=== PATIENT | male | born 1980 ===

== ENCOUNTER 2022-09-07 06:01 | Inpatient (IN) ==
[~2022-09-07 06:01] MED LIST: ALVIMOPAN 12 MG CAPSULE ONE; ERTAPENEM 1,000 MG in SODIUM CHLORIDE 0.9% 100 ML IV ONE
[2022-09-07] MEDS ORDERED: ALVIMOPAN 12 MG CAPSULE PO STA (06:30)
[2022-09-07] MEDS: LACTATED RINGERS 1,000 ML IV SCH ×4 (06:45→23:18)
[2022-09-07 07:10] LABS: Basophils % 0.2 % (0.0-0.8); Eosinophils # 0.1 10*3/uL (0.0-0.87); Hematocrit 42.8 VOL% (42.0-52.0); Hemoglobin 14.2 GM/DL (14.0-18.0); Immature Granulocytes % 0.2 %; Immature Granulocytes Absolute 0.01 #; Lymphocytes % 22.4 % (21.2-54.2); Mean Corpuscular HGB Conc 33.2 GM/DL (32-36); Mean Corpuscular Volume 82.8 FL (87-102); Monocytes # 0.5 10*3/uL (0.11-0.8); Monocytes % 11.3 % (1.7-12.7); Neutrophils % 63.9 % (38.7-73.9); Platelet Count 176 T/CUMM (130-400); Red Blood Count 5.17 MC/CUMM (3.8-5.5); White Blood Count 4.6 T/CUMM (4-12)
[2022-09-07] MEDS ORDERED: DIAZEPAM 5 MG TABLET PO ONE (07:22)
[2022-09-07] MEDS ORDERED: ACETAMINOPHEN 500 MG TABLET PO ONE (07:22)
[2022-09-07] MEDS ORDERED: FAMOTIDINE 20 MG TABLET PO ONE (07:22)
[2022-09-07] MEDS ORDERED: GABAPENTIN 400 MG CAPSULE PO ONE (07:22)
[2022-09-07 07:32] LABS: Calcium 8.6 MG/DL (8.5-10.1); Osmolality,Calculated 272.7 MOS/KG (273-304); Potassium 4.1 MMOL/L (3.5-5.1)
[2022-09-07] MEDS ORDERED: MIDAZOLAM 2 MG/2 ML VIAL ONE (09:32)
[2022-09-07] MEDS ORDERED: ROCURONIUM 50 MG/5 ML VIAL IV ONE (09:32)
[2022-09-07] MEDS ORDERED: LIDOCAINE 2% 5 ML VIAL ONE (09:32)
[2022-09-07] MEDS ORDERED: ONDANSETRON 4 MG/2 ML VIAL ONE (09:32)
[2022-09-07] MEDS ORDERED: propofoL 200 MG/20 ML VIAL IV ONE (09:32)
[2022-09-07] MEDS ORDERED: fentaNYL 250 MCG/5 ML VIAL ONE (09:33)
[2022-09-07] MEDS ORDERED: DEXAMETHASONE 4 MG/1 ML VIAL ONE (10:16)
[2022-09-07] MEDS ORDERED: PHENYLEPHRINE 1 MG/10 ML SYRINGE IV ONE (10:19)
[2022-09-07] MEDS ORDERED: SEVOFLURANE 1 UNIT/15 MINUTE INH ONE ×8 (10:20→11:48)
[2022-09-07] MEDS ORDERED: LACTATED RINGERS 1,000 ML IV ONE (10:31)
[2022-09-07] MEDS ORDERED: ePHEDrine 50 MG/ML VIAL ONE (10:54)
[2022-09-07] MEDS ORDERED: MEPERIDINE 25 MG/1 ML VIAL ONE (12:02)
[2022-09-07] MEDS ORDERED: PROMETHAZINE 25 MG/1 ML VIAL ONE (12:02)
[2022-09-07] MEDS: MEPERIDINE 25 MG/1 ML VIAL IV PRN ×2 (12:05→12:25)
[2022-09-07] MEDS ORDERED: PROMETHAZINE INJ 12.5 MG in SODIUM CHLORIDE 0.9% 50 ML IV PRN (12:13)
[2022-09-07] MEDS ORDERED: HYDROmorphone 1 MG/1 ML SYRINGE IV PRN (12:51)
[2022-09-07] MEDS ORDERED: ALBUTEROL/IPRATROPIUM 3 ML NEB RESP TX PRN (12:51)
[2022-09-07] MEDS ORDERED: ACETAMINOPHEN 325 MG TABLET PO PRN (12:51)
[2022-09-07] MEDS: ALVIMOPAN 12 MG CAPSULE PO SCH (21:32)
[2022-09-08] MEDS: HYDROmorphone 1 MG/1 ML SYRINGE IV PRN ×3 (01:19→19:13)
[2022-09-08 05:58] LABS: Basophils % 0.3 % (0.0-0.8); Hematocrit 40.1 VOL% (42.0-52.0); Hemoglobin 13.4 GM/DL (14.0-18.0); Immature Granulocytes % 0.3 %; Immature Granulocytes Absolute 0.02 #; Lymphocytes % 12.4 % (21.2-54.2); Mean Corpuscular HGB Conc 33.4 GM/DL (32-36); Mean Corpuscular Volume 82.5 FL (87-102); Mean Platelet Volume 12.5 FL (9.6-12.0); Monocytes # 0.7 10*3/uL (0.11-0.8); Monocytes % 9.7 % (1.7-12.7); Neutrophils % 77.3 % (38.7-73.9); Platelet Count 154 T/CUMM (130-400); Red Blood Count 4.86 MC/CUMM (3.8-5.5); Red Cell Distribution Width 13.8 % (9.3-17.3); White Blood Count 7.7 T/CUMM (4-12)
[2022-09-08 06:18] LABS: Calcium 8.2 MG/DL (8.5-10.1); Osmolality,Calculated 277.4 MOS/KG (273-304); Potassium 4.4 MMOL/L (3.5-5.1)
[2022-09-08] MEDS: ENOXAPARIN 40 MG/0.4 ML SYRINGE SUBCUT SCH (07:01)
[2022-09-08] MEDS: amLODIPine 2.5 MG TABLET PO SCH (08:35)
[2022-09-08] MEDS: ALVIMOPAN 12 MG CAPSULE PO SCH ×2 (08:36→19:13)
[2022-09-08] MEDS: METOCLOPRAMIDE 10 MG/2 ML VIAL IV SCH ×2 (11:10→17:09)
[2022-09-08] MEDS: LACTATED RINGERS 1,000 ML IV SCH ×3 (11:23→20:21)
[2022-09-09] MEDS: METOCLOPRAMIDE 10 MG/2 ML VIAL IV SCH ×5 (00:57→23:03)
[2022-09-09] MEDS: LACTATED RINGERS 1,000 ML IV SCH ×3 (06:18→23:09)
[2022-09-09] MEDS: HYDROmorphone 1 MG/1 ML SYRINGE IV PRN ×4 (06:28→23:02)
[2022-09-09] MEDS: ENOXAPARIN 40 MG/0.4 ML SYRINGE SUBCUT SCH (07:11)
[2022-09-09] MEDS: ALVIMOPAN 12 MG CAPSULE PO SCH ×2 (09:18→20:02)
[2022-09-09] MEDS: amLODIPine 2.5 MG TABLET PO SCH (09:18)
[2022-09-09] MEDS: ONDANSETRON 4 MG/2 ML VIAL IV PRN (23:09)
[2022-09-10] MEDS: HYDROmorphone 1 MG/1 ML SYRINGE IV PRN ×5 (04:10→21:17)
[2022-09-10] MEDS: ONDANSETRON 4 MG/2 ML VIAL IV PRN (04:18)
[2022-09-10] MEDS: METOCLOPRAMIDE 10 MG/2 ML VIAL IV SCH ×3 (05:23→17:28)
[2022-09-10 06:43] LABS: Basophils % 0.2 % (0.0-0.8); Eosinophils % 0.2 % (0.00-10.9); Hematocrit 31.4 VOL% (42.0-52.0); Hemoglobin 10.5 GM/DL (14.0-18.0); Immature Granulocytes % 0.3 %; Immature Granulocytes Absolute 0.02 #; Lymphocytes # 0.8 10*3/uL (1.4-4.0); Lymphocytes % 11.8 % (21.2-54.2); Mean Corpuscular HGB Conc 33.4 GM/DL (32-36); Mean Platelet Volume 11.1 FL (9.6-12.0); Monocytes # 0.8 10*3/uL (0.11-0.8); Monocytes % 12.8 % (1.7-12.7); Neutrophils % 74.7 % (38.7-73.9); Platelet Count 126 T/CUMM (130-400); Red Blood Count 3.83 MC/CUMM (3.8-5.5); Red Cell Distribution Width 13.5 % (9.3-17.3); White Blood Count 6.5 T/CUMM (4-12)
[2022-09-10 07:03] LABS: Calcium 8.5 MG/DL (8.5-10.1); Osmolality,Calculated 279.4 MOS/KG (273-304); Potassium 4.1 MMOL/L (3.5-5.1)
[2022-09-10 07:15] LABS: Platelet Estimate Decreased
[2022-09-10] MEDS: LACTATED RINGERS 1,000 ML IV SCH ×2 (07:39→17:29)
[2022-09-10] MEDS: ENOXAPARIN 40 MG/0.4 ML SYRINGE SUBCUT SCH (07:42)
[2022-09-10] MEDS: amLODIPine 2.5 MG TABLET PO SCH (10:27)
[2022-09-10] MEDS: ALVIMOPAN 12 MG CAPSULE PO SCH ×2 (10:27→21:18)
[2022-09-11] MEDS: HYDROmorphone 1 MG/1 ML SYRINGE IV PRN ×3 (00:01→20:19)
[2022-09-11] MEDS: LACTATED RINGERS 1,000 ML IV SCH ×3 (01:07→18:05)
[2022-09-11 05:33] LABS: Basophils % 0.2 % (0.0-0.8); Eosinophils # 0.1 10*3/uL (0.0-0.87); Eosinophils % 2.7 % (0.00-10.9); Hematocrit 30.2 VOL% (42.0-52.0); Hemoglobin 9.6 GM/DL (14.0-18.0); Immature Granulocytes % 0.4 %; Immature Granulocytes Absolute 0.02 #; Lymphocytes # 0.7 10*3/uL (1.4-4.0); Lymphocytes % 13.5 % (21.2-54.2); Mean Corpuscular HGB Conc 31.8 GM/DL (32-36); Mean Corpuscular Volume 83.2 FL (87-102); Mean Platelet Volume 11.4 FL (9.6-12.0); Monocytes # 0.6 10*3/uL (0.11-0.8); Monocytes % 11.2 % (1.7-12.7); Platelet Count 144 T/CUMM (130-400); Red Blood Count 3.63 MC/CUMM (3.8-5.5); Red Cell Distribution Width 13.5 % (9.3-17.3); White Blood Count 5.2 T/CUMM (4-12)
[2022-09-11 05:43] LABS: Calcium 8.4 MG/DL (8.5-10.1); Osmolality,Calculated 284.8 MOS/KG (273-304); Potassium 3.7 MMOL/L (3.5-5.1)
[2022-09-11] MEDS: ENOXAPARIN 40 MG/0.4 ML SYRINGE SUBCUT SCH (07:25)
[2022-09-11] MEDS: METOCLOPRAMIDE 10 MG/2 ML VIAL IV SCH ×4 (07:28→18:05)
[2022-09-11] MEDS: ALVIMOPAN 12 MG CAPSULE PO SCH ×2 (08:12→20:19)
[2022-09-11] MEDS: amLODIPine 2.5 MG TABLET PO SCH (08:12)
[2022-09-11] MEDS ORDERED: MAGNESIUM SULF RIDER 4 GM/100 ML PREMIX IV PRN (11:18)
[2022-09-11] MEDS ORDERED: MAGNESIUM SULF RIDER 2 GM/50 ML PREMIX IV PRN (11:18)
[2022-09-11] MEDS: FAT EMULSION 20% 250 ML IV SCH (15:50)
[2022-09-11] MEDS: AMINO ACIDS/DEXT/LYTES 4.25-5% 2,000 ML IV SCH (18:05)
[2022-09-12] MEDS: METOCLOPRAMIDE 10 MG/2 ML VIAL IV SCH ×4 (00:26→17:44)
[2022-09-12] MEDS: HYDROmorphone 1 MG/1 ML SYRINGE IV PRN ×4 (00:28→23:40)
[2022-09-12 06:03] LABS: Basophils % 0.1 % (0.0-0.8); Eosinophils # 0.2 10*3/uL (0.0-0.87); Eosinophils % 2.3 % (0.00-10.9); Hematocrit 34.4 VOL% (42.0-52.0); Hemoglobin 11.9 GM/DL (14.0-18.0); Immature Granulocytes % 0.4 %; Immature Granulocytes Absolute 0.03 #; Lymphocytes % 13.9 % (21.2-54.2); Mean Corpuscular HGB Conc 34.6 GM/DL (32-36); Mean Corpuscular Volume 79.8 FL (87-102); Mean Platelet Volume 11.3 FL (9.6-12.0); Monocytes # 0.8 10*3/uL (0.11-0.8); Monocytes % 10.8 % (1.7-12.7); Neutrophils % 72.5 % (38.7-73.9); Platelet Count 196 T/CUMM (130-400); Red Blood Count 4.31 MC/CUMM (3.8-5.5); Red Cell Distribution Width 13.2 % (9.3-17.3); White Blood Count 6.9 T/CUMM (4-12)
[2022-09-12 06:29] LABS: Calcium 9.2 MG/DL (8.5-10.1); Osmolality,Calculated 276.5 MOS/KG (273-304); Potassium 3.3 MMOL/L (3.5-5.1)
[2022-09-12] MEDS ORDERED: POTASSIUM PHOSPHATE 15 MMOL in SODIUM CHLORIDE 0.9% 100 ML IV ONE (11:00)
[2022-09-12] MEDS: ALVIMOPAN 12 MG CAPSULE PO SCH ×2 (11:40→23:31)
[2022-09-12] MEDS: amLODIPine 2.5 MG TABLET PO SCH (11:40)
[2022-09-12] MEDS: ENOXAPARIN 40 MG/0.4 ML SYRINGE SUBCUT SCH (11:40)
[2022-09-12] MEDS: LACTATED RINGERS 1,000 ML IV SCH ×3 (11:45→15:50)
[2022-09-12] MEDS: FAT EMULSION 20% 250 ML IV SCH (14:14)
[2022-09-12] MEDS: AMINO ACIDS/DEXT/LYTES 4.25-5% 2,000 ML IV SCH (17:08)
[2022-09-12] MEDS: chlorproMAZINE INJ 25 MG in SODIUM CHLORIDE 0.9% 100 ML IV PRN (17:08)
[2022-09-13] MEDS: METOCLOPRAMIDE 10 MG/2 ML VIAL IV SCH ×4 (00:17→17:21)
[2022-09-13] MEDS: chlorproMAZINE INJ 25 MG in SODIUM CHLORIDE 0.9% 100 ML IV PRN ×3 (01:27→21:40)
[2022-09-13] MEDS: HYDROmorphone 1 MG/1 ML SYRINGE IV PRN ×4 (04:05→21:31)
[2022-09-13] MEDS: ENOXAPARIN 40 MG/0.4 ML SYRINGE SUBCUT SCH ×2 (06:37→09:03)
[2022-09-13] MEDS: ALVIMOPAN 12 MG CAPSULE PO SCH ×2 (09:02→21:39)
[2022-09-13] MEDS: amLODIPine 2.5 MG TABLET PO SCH (09:03)
[2022-09-13] MEDS: LACTATED RINGERS 1,000 ML IV SCH ×2 (11:14→12:23)
[2022-09-13] MEDS ORDERED: LORazepam 2 MG/1 ML VIAL IV PRN (12:14)
[2022-09-13] MEDS: PANTOPRAZOLE 40 MG VIAL IV SCH ×2 (15:10→21:39)
[2022-09-13] MEDS: FAT EMULSION 20% 250 ML IV SCH (15:26)
[2022-09-13] MEDS ORDERED: LORazepam 2 MG/1 ML VIAL IV ONE (16:51)
[2022-09-13] MEDS: AMINO ACIDS/DEXT/LYTES 4.25-5% 2,000 ML IV SCH (17:23)
[2022-09-14] MEDS: METOCLOPRAMIDE 10 MG/2 ML VIAL IV SCH ×5 (00:18→23:06)
[2022-09-14] MEDS: ONDANSETRON 4 MG/2 ML VIAL IV PRN (03:16)
[2022-09-14] MEDS: HYDROmorphone 1 MG/1 ML SYRINGE IV PRN ×2 (05:51→10:47)
[2022-09-14 09:01] LABS: Basophils % 0.1 % (0.0-0.8); Eosinophils # 0.2 10*3/uL (0.0-0.87); Eosinophils % 2.4 % (0.00-10.9); Hematocrit 32.2 VOL% (42.0-52.0); Hemoglobin 10.7 GM/DL (14.0-18.0); Immature Granulocytes % 0.4 %; Immature Granulocytes Absolute 0.03 #; Lymphocytes # 0.9 10*3/uL (1.4-4.0); Lymphocytes % 10.6 % (21.2-54.2); Mean Corpuscular HGB Conc 33.2 GM/DL (32-36); Mean Corpuscular Volume 82.4 FL (87-102); Mean Platelet Volume 11.5 FL (9.6-12.0); Monocytes # 0.8 10*3/uL (0.11-0.8); Monocytes % 10.4 % (1.7-12.7); Neutrophils % 76.1 % (38.7-73.9); Platelet Count 168 T/CUMM (130-400); Red Blood Count 3.91 MC/CUMM (3.8-5.5); Red Cell Distribution Width 13.9 % (9.3-17.3)
[2022-09-14 09:14] LABS: Calcium 8.8 MG/DL (8.5-10.1); Osmolality,Calculated 275.7 MOS/KG (273-304); Potassium 3.9 MMOL/L (3.5-5.1)
[2022-09-14] MEDS: ENOXAPARIN 40 MG/0.4 ML SYRINGE SUBCUT SCH (09:39)
[2022-09-14] MEDS: amLODIPine 2.5 MG TABLET PO SCH (09:39)
[2022-09-14] MEDS: ALVIMOPAN 12 MG CAPSULE PO SCH ×2 (09:39→21:37)
[2022-09-14] MEDS: PANTOPRAZOLE 40 MG VIAL IV SCH ×2 (09:39→21:37)
[2022-09-14] MEDS: FAT EMULSION 20% 250 ML IV SCH (14:19)
[2022-09-14] MEDS: AMINO ACIDS/DEXT/LYTES 4.25-5% 2,000 ML IV SCH (17:38)
[2022-09-14] MEDS: LACTATED RINGERS 1,000 ML IV SCH (17:41)
[2022-09-15 05:00] LABS: Basophils % 0.2 % (0.0-0.8); Eosinophils # 0.2 10*3/uL (0.0-0.87); Immature Granulocytes % 0.5 %; Immature Granulocytes Absolute 0.04 #; Lymphocytes # 0.9 10*3/uL (1.4-4.0); Lymphocytes % 11.5 % (21.2-54.2); Mean Corpuscular HGB Conc 33.3 GM/DL (32-36); Mean Corpuscular Volume 81.7 FL (87-102); Mean Platelet Volume 11.9 FL (9.6-12.0); Monocytes % 12.2 % (1.7-12.7); Neutrophils % 72.6 % (38.7-73.9); Platelet Count 206 T/CUMM (130-400); Red Blood Count 4.04 MC/CUMM (3.8-5.5); Red Cell Distribution Width 13.5 % (9.3-17.3); White Blood Count 8.1 T/CUMM (4-12)
[2022-09-15 05:21] LABS: Phosphorous 3.5 MG/DL (2.5-4.9)
[2022-09-15 05:32] LABS: Calcium 8.7 MG/DL (8.5-10.1); Osmolality,Calculated 275.7 MOS/KG (273-304); Potassium 4.6 MMOL/L (3.5-5.1)
[2022-09-15] MEDS: METOCLOPRAMIDE 10 MG/2 ML VIAL IV SCH ×3 (05:51→17:07)
[2022-09-15] MEDS: amLODIPine 2.5 MG TABLET PO SCH (09:51)
[2022-09-15] MEDS: ENOXAPARIN 40 MG/0.4 ML SYRINGE SUBCUT SCH (09:52)
[2022-09-15] MEDS: PANTOPRAZOLE 40 MG VIAL IV SCH ×2 (09:52→20:36)
[2022-09-15] MEDS: LACTATED RINGERS 1,000 ML IV SCH ×3 (10:50→15:41)
[2022-09-15] MEDS: HYDROcod/ACETAMIN 7.5-325 MG/15 ML UDCUP PO PRN ×3 (11:13→22:38)
[2022-09-15] MEDS: AMINO ACIDS/DEXT/LYTES 4.25-5% 2,000 ML IV SCH (11:18)
[2022-09-15] MEDS: FAT EMULSION 20% 250 ML IV SCH (14:33)
[2022-09-16] MEDS: METOCLOPRAMIDE 10 MG/2 ML VIAL IV SCH ×4 (00:58→17:53)
[2022-09-16] MEDS: AMINO ACIDS/DEXT/LYTES 4.25-5% 2,000 ML IV SCH ×2 (09:52→13:07)
[2022-09-16] MEDS: HYDROcod/ACETAMIN 7.5-325 MG/15 ML UDCUP PO PRN ×3 (10:05→20:06)
[2022-09-16] MEDS: amLODIPine 2.5 MG TABLET PO SCH (10:05)
[2022-09-16] MEDS: ENOXAPARIN 40 MG/0.4 ML SYRINGE SUBCUT SCH (10:05)
[2022-09-16] MEDS: PANTOPRAZOLE 40 MG VIAL IV SCH ×2 (10:05→20:06)
[2022-09-16] MEDS: FAT EMULSION 20% 250 ML IV SCH (14:09)
[2022-09-16] MEDS: LACTATED RINGERS 1,000 ML IV SCH (14:09)
[2022-09-17] MEDS: HYDROcod/ACETAMIN 7.5-325 MG/15 ML UDCUP PO PRN ×5 (00:14→20:29)
[2022-09-17] MEDS: METOCLOPRAMIDE 10 MG/2 ML VIAL IV SCH ×4 (00:15→17:30)
[2022-09-17] MEDS: AMINO ACIDS/DEXT/LYTES 4.25-5% 2,000 ML IV SCH (07:54)
[2022-09-17] MEDS: amLODIPine 2.5 MG TABLET PO SCH (09:26)
[2022-09-17] MEDS: ENOXAPARIN 40 MG/0.4 ML SYRINGE SUBCUT SCH (09:27)
[2022-09-17] MEDS: PANTOPRAZOLE 40 MG VIAL IV SCH ×2 (09:29→20:28)
[2022-09-17] MEDS: LACTATED RINGERS 1,000 ML IV SCH (12:30)
[2022-09-17] MEDS: FAT EMULSION 20% 250 ML IV SCH (15:35)
[2022-09-18] MEDS: HYDROcod/ACETAMIN 7.5-325 MG/15 ML UDCUP PO PRN ×6 (00:30→23:27)
[2022-09-18] MEDS: METOCLOPRAMIDE 10 MG/2 ML VIAL IV SCH ×4 (00:30→17:20)
[2022-09-18] MEDS: AMINO ACIDS/DEXT/LYTES 4.25-5% 2,000 ML IV SCH (03:19)
[2022-09-18] MEDS: PANTOPRAZOLE 40 MG VIAL IV SCH ×2 (09:45→23:37)
[2022-09-18] MEDS: ENOXAPARIN 40 MG/0.4 ML SYRINGE SUBCUT SCH (09:45)
[2022-09-18] MEDS: amLODIPine 2.5 MG TABLET PO SCH (09:45)
[2022-09-18] MEDS: LACTATED RINGERS 1,000 ML IV SCH (18:53)
[2022-09-19] MEDS: METOCLOPRAMIDE 10 MG/2 ML VIAL IV SCH ×3 (02:55→12:41)
[2022-09-19] MEDS: HYDROcod/ACETAMIN 7.5-325 MG/15 ML UDCUP PO PRN ×3 (04:45→13:37)
[2022-09-19] MEDS: ENOXAPARIN 40 MG/0.4 ML SYRINGE SUBCUT SCH (09:31)
[2022-09-19] MEDS: amLODIPine 2.5 MG TABLET PO SCH (09:31)
[2022-09-19] MEDS: PANTOPRAZOLE 40 MG VIAL IV SCH (09:34)
[2022-09-19] MEDS: LACTATED RINGERS 1,000 ML IV SCH (10:54)
[2022-09-19 11:26] VITALS: BP 113/67
== END 2022-09-19 14:58 | DRG 330 ==
LOC: N.SDSINP 06:01 → N.3W 13:04
PROVIDERS: ADMIT Surgery; ATTEND Surgery